=== PATIENT | female | born 1960 | race Caucasian/White ===

== ENCOUNTER 2016-08-23 20:38 | Emergency (ER) | payer MEDICAID ==
[~2016-08-23 20:38] MED LIST: BACTRIM DS TAB1 EAC2 PO; BENAZEPRIL HCL10 M2 PO; FISH OIL 11000 MG/CA PO; GLUCOPHAGE500 M3 PO; HYDROCHLOROTH12.5 M2; JENTADUETO PO; MACROBID 100 M100 M1 PO; METFORMIN HCL1000 M2 PO; MOBIC7.5 M2 PO; MOEXIPRIL HCTZ PO; NORCO 5-325 TA1 EACH PO; VITAMIN B122500 MC1 PO; [UNRECOGNIZED DRUG - OTHER]
[2016-08-23] MEDS ORDERED: NORCO 5/3251 TAB PO (23:34)
[2016-09-06] MEDS ORDERED: VITAMIN C1000 M1 PO (12:47)
[2016-09-06] MEDS ORDERED: MULTIVITAMIN (12:47)
[2016-09-06] MEDS ORDERED: NORCO 5-325 TA1 EACH PO (12:53)
== END 2016-08-23 23:52 ==
LOC: EDMED 20:38
DX: S82.142A Displaced bicondylar fracture of left tibia, initial encounter for closed fracture (principal); I10 Essential (primary) hypertension; E11.9 Type 2 diabetes mellitus without complications; W19.XXXA Unspecified fall, initial encounter
CPT/HCPCS: J2270

== ENCOUNTER 2016-09-08 09:36 | Day surgery (SDC) | payer MEDICAID ==
[~2016-09-08 09:36] MED LIST changes: +MULTIVITAMIN; +NORCO 5/3251 TAB PO; +VITAMIN C1000 M1 PO
[2016-09-08] MEDS ORDERED: NICOTINE PATCH1 EAC2 TP (10:03)
[2016-09-08] MEDS ORDERED: PERCOCET 5-3251 EACH PO (10:06)
[2016-09-08] MEDS ORDERED: ULTRAM50 M1 PO (10:08)
[2016-09-09] MEDS ORDERED: ASPIRIN325 M3 PO (10:11)
[2016-09-09] MEDS ORDERED: PHENERGAN12.5 M2 PO (10:12)
== END 2016-09-10 13:35 ==
LOC: SRG 09:36 → SHSC 09:42 → ORE 12:44 → PACU 15:38 → 5EB 16:56
PROC: 0QSH04Z Reposition Left Tibia with Internal Fixation Device, Open Approach (ICD-10-PCS; principal; 2016-09-08)
DX: S82.142A Displaced bicondylar fracture of left tibia, initial encounter for closed fracture (principal); E66.9 Obesity, unspecified; E11.9 Type 2 diabetes mellitus without complications; E07.9 Disorder of thyroid, unspecified; Z88.6 Allergy status to analgesic agent; Z79.899 Other long term (current) drug therapy
CPT/HCPCS: C1713; J0171; J0690; J1170; J1885; J2795; J3010